=== PATIENT | female | born 1980 ===

== ENCOUNTER 2018-10-19 23:30 | Emergency (ER) | payer BC ==
--- NOTE | 2018-10-20 00:28 | C.PDOC ---
Time Seen by Provider: 10/20/18 00:04 Chief Complaint (Nursing): High Blood Pressure Past Medical History Vital Signs: Last Vital Signs Temp 97 F L 10/19/18 23:37 Pulse 90 10/19/18 23:37 Resp 16 10/19/18 23:37 BP 130/80 10/19/18 23:37 Pulse Ox 97 10/19/18 23:37 - Medical History PMH: Graves' Disease, HTN - Social History Hx Alcohol Use: No Hx Substance Use: No - Immunization History Hx Tetanus Toxoid Vaccination: No Hx Influenza Vaccination: No Hx Pneumococcal Vaccination: No ED Course And Treatment O2 Sat by Pulse Oximetry: 97 Disposition - Disposition
--- NOTE | 2018-10-20 00:34 | C.PDOC ---
History Of Present Illness 37 year old female with PMHx of HTN presents to the ED c/o recurrent headache that started [employer]. Patient states she normally gets several headache during the week that resolved after taking Tylenol. Patient reports some bilateral jaw pain that worsens with jaw movement associated with tingling in bilateral legs and nausea. Patient reports she normally gets symptoms with elevated blood pressure. Patient states this headache feels similar to prior, last Tylenol taken at 22:30. Patient denies fever, chills, visual changes, dizziness, rash, neck pain, injury, fall, trauma, weakness, numbness. Time Seen by Provider: 10/20/18 00:04 Chief Complaint (Nursing): High Blood Pressure History Per: Patient History/Exam Limitations: no limitations Onset/Duration Of Symptoms: Hrs Current Symptoms Are (Timing): Still Present Quality: "Pain" Associated Symptoms: Nausea. denies: Photophobia Recent travel outside of the [place]: No Additional History Per: Patient Past Medical History Reviewed: Historical Data, Nursing Documentation, Vital Signs Vital Signs: Last Vital Signs Temp 97 F L 10/19/18 23:37 Pulse 90 10/19/18 23:37 Resp 16 10/19/18 23:37 BP 130/80 10/19/18 23:37 Pulse Ox 97 10/19/18 23:37 - Medical History PMH: Graves' Disease, HTN Surgical History: No Surg Hx Family History: States: Unknown Family Hx - Social History Hx Alcohol Use: No Hx Substance Use: No - Immunization History Hx Tetanus Toxoid Vaccination: No Hx Influenza Vaccination: No Hx Pneumococcal Vaccination: No Review Of Systems Constitutional: Negative for: Fever, Chills Eyes: Negative for: Vision Change Cardiovascular: Negative for: Chest Pain Respiratory: Negative for: Shortness of Breath Gastrointestinal: Positive for: Nausea. Negative for: Vomiting, Abdominal Pain Skin: Negative for: Rash Neurological: Positive for: Headache. Negative for: Weakness, Numbness, Dizziness Physical Exam - Physical Exam Appears: Non-toxic, In Acute Distress (crying) Skin: Normal Color, Warm, Dry Head: Atraumatic, Normacephalic, Tenderness (bilateral TMJ) Eye(s): bilateral: Normal Inspection, PERRL, EOMI Oral Mucosa: Moist Throat: Normal, No Erythema, No Exudate Neck: Normal ROM, Supple, Other (tension along bilateral neck ) Chest: Symmetrical Cardiovascular: Rhythm Regular Respiratory: Normal Breath Sounds, No Rales, No Rhonchi, No Wheezing Gastrointestinal/Abdominal: Soft, No Tenderness Back: Other (tension along bilateral upper back) Extremity: Normal ROM, No Tenderness, No Swelling Neurological/Psych: Oriented x3, Normal Speech, Normal Cognition, Normal Motor, Normal Sensation Gait: Steady ED Course And Treatment O2 Sat by Pulse Oximetry: 97 (ON RA) Pulse Ox Interpretation: Normal - CT Scan/US CT head Other Rad Studies (CT/US): Read By Radiologist, Radiology Report Reviewed CT/US Interpretation: EXAM: CT Head without Intravenous Contrast. CLINICAL HISTORY: Headaches. TECHNIQUE: Axial computed tomography images of the head/brain without intravenous contrast. 0.00 mGy-cm. COMPARISON: None provided. FINDINGS: BRAIN. No acute intraparenchymal hemorrhage. No mass lesion. No CT evidence for acute territorial infarct. No midline shift or extra- axial collections. VENTRICLES: No hydrocephalus. ORBITS: The orbits are unremarkable. SINUSES AND MASTOIDS: The paranasal sinuses and mastoid air cells are clear. BONES: No fracture. SOFT TISSUES: Unremarkable. IMPRESSION: No acute intracranial abnormality. . Electronically signed on Oct 20, 2018 1:56:19 AM EST by: Chet Ceja M.D., KEVIN Certified By ABR & CBC[employer]. Fellowship Trained MRI and CT Specialist. Progress - Re-Evaluation Re-evaluation Note: 10/20/18 02:[address] REPORT REVIEWED - Data Reviewed Data Reviewed: Old records Medical Decision Making Medical Decision Making: Plan: * CT head * Magnesium sulfate * Reglan 10 mg IVP * IV fluids * Toradol 30 mg IVP Disposition Counseled Patient/Family Regarding: Studies Performed, Diagnosis, Need For Followup, Rx Given - Disposition Referrals: [facility] [Outside] [facility] [Outside] Disposition: HOME/ ROUTINE Disposition Time: 02:55 Condition: IMPROVED Prescriptions: Ibuprofen [Motrin] 600 mg PO Q6 #30 tab Metoclopramide [Reglan] 1 tab PO TID PRN #25 tab PRN Reason: Nausea/Vomiting Instructions: Migraine Headache (DC) Forms: [employer] (Croatian) - Clinical Impression Clinical Impression: Migraine - Scribe Statement The provider has reviewed the documentation as recorded by the Scribe Adam Gongora All medical record entries made by the Scribe were at my direction and personally dictated by me. I have reviewed the chart and agree that the record accurately reflects my personal performance of the history, physical exam, medical decision making, and the department course for this patient. I have also personally directed, reviewed, and agree with the discharge instructions and disposition.
[2018-10-20] MEDS ORDERED: Magnesium Sulfate 1 gm in D5W 1 GM/100 ML BAG IVPB STA (00:35)
[2018-10-20] MEDS ORDERED: Sodium Chloride 0.9% 1,000 ML IV STA (00:35)
[2018-10-20] MEDS ORDERED: Magnesium Sulfate 1 gm in D5W 1 GM/100 ML BAG IVPB ONE (00:47)
[2018-10-20] MEDS ORDERED: Sodium Chloride 0.9% 1,000 ML ONE (00:48)
[2018-10-20 02:33] VITALS: BP 122/88; PULSE 86; RESP 20; TEMP 98.2
[2018-10-20 02:56] VITALS: O2SAT 97
--- NOTE | 2018-10-20 08:12 | CT ---
Date of service: 10/20/2018 PROCEDURE: CT HEAD WITHOUT CONTRAST. HISTORY: Headache COMPARISON: None available. TECHNIQUE: Axial computed tomography images were obtained through the head/brain without intravenous contrast. Radiation dose: Total exam DLP = 1034.65 mGy-cm. This CT exam was performed using one or more of the following dose reduction techniques: Automated exposure control, adjustment of the mA and/or kV according to patient size, and/or use of iterative reconstruction technique. FINDINGS: HEMORRHAGE: No intracranial hemorrhage. BRAIN: Walters-white matter differentiation is preserved. There is no mass, mass effect or abnormal extra-axial fluid collection. There is no territorial infarction. The midline sagittal structures are normal. VENTRICLES: The ventricles are normal in size, shape and configuration. CALVARIUM: There is no calvarial fracture or extracranial soft tissue swelling. PARANASAL SINUSES: Predominantly clear. MASTOID AIR CELLS: Predominantly clear. OTHER FINDINGS: None. IMPRESSION: No acute intracranial abnormality. A preliminary report was provided by [employer]
== END 2018-10-20 03:07 | disposition home or self-care (01) ==
LOC: C.ER 23:30
DX: G43.909 Migraine, unspecified, not intractable, without status migrainosus (principal); I10 Essential (primary) hypertension; E05.00 Thyrotoxicosis with diffuse goiter without thyrotoxic crisis or storm
CPT/HCPCS: 70450; 82948; 96365; 96375; 99284; J1885; J2765; J3475; J7030